=== PATIENT | female | born 1955 | race African-American/Black ===

== ENCOUNTER 2018-02-28 22:08 | Emergency (ER) | payer MEDICARE, OTHER ==
[~2018-02-28] VITALS: Ht 170.2 cm; Wt 117.9 kg
[2018-02-28 22:15] VITALS: BP 188/100
[2018-02-28] MEDS ORDERED: Solu-MEDROL 125mg Inj IVP ONE (22:45)
--- NOTE | 2018-02-28 22:55 | Emergency Room Report ---
History of Present Illness General Chief Complaint: Dyspnea/Respdistress Source: Patient Present Illness HPI 59-year-old female with history of COPD on 2 L nasal cannula 24 hours a day p/w SOB for 1 day. SOB occurs both at rest and on exertion. Denies chest pain. States that she ran out of her albuterol liquid for her nebulizer Pt states that this episode is similar to other episodes of COPD exacerbation. Denies fever, chills. Denies sick contacts or recent travel. Allergies: Coded Allergies: No Known Allergies (Unverified , 02/28/18) Patient History Past Medical History: see triage record Past Surgical History: none Pertinent Family History: none Reviewed Nursing Documentation: PMH: Agreed; PSxH: Agreed Nursing Documentation-PMH Past Medical History: No History, Except For Hx Hypertension: Yes - history of broken collar bone Hx COPD: Yes Review of Systems All Other Systems: negative except mentioned in HPI Physical Exam Vital Signs Date Time Temp Pulse Resp B/P (MAP) Pulse Ox O2 Delivery O2 Flow Rate FiO2 02/28/18 22:09 98.9 116 22 188/100 100 Simple Mask 6.0 99.0 Sp02 EP Interpretation: reviewed, normal General Appearance: alert, GCS 15, non-toxic, mild distress Head: normocephalic, atraumatic Eyes: bilateral eye normal inspection, bilateral eye PERRL, bilateral eye EOMI ENT: normal ENT inspection, normal pharynx, normal voice, moist mucus membranes Neck: normal inspection, full range of motion, supple Respiratory: respiratory distress, speaking full sentences, wheezing, expiration Cardiovascular #1: normal inspection, regular rate, rhythm, no edema, normal capillary refill Cardiovascular #2: 2+ radial (R), 2+ radial (L) Gastrointestinal: normal inspection, non tender, soft, non-distended, no guarding Musculoskeletal: normal inspection, back normal, normal range of motion, non- tender Neurologic: normal inspection, alert, oriented x3, responsive, motor strength/ tone normal, sensory intact, normal gait, speech normal Psychiatric: normal inspection, judgement/insight normal, memory normal Skin: normal inspection, normal color, no rash, warm/dry, well hydrated, normal turgor Medical Decision Making Diagnostic Impression: Primary Impression: COPD exacerbation Additional Impression: Respiratory distress ER Course 63-year-old female with pmhx of COPD p/w SOB for 1 day. DDX: COPD exacerbation, ACS, pneumonia Plan: IV access, cardiac rn, O2 nasal cannula, EKG, CXR obtain basic labs, troponin, Duonebs, steroids, consider mag, Will consider BIPAP for persistent or worsening respiratory status ER Course: Patient's respiratory status has been closely monitored in the ED. Patient has been treated with combivent x 3, steroids, antibiotics. IV mag sulfate CXR reveals congestion vs. infiltrate, given abx Disposition: Patient will be admitted to telemetry D/W hospitalist. Please note that this Emergency Department Report was dictated using [employer] engineer technology software, occasionally this can lead to erroneous entry secondary to interpretation by the dictation equipment. EKG Diagnostic Results EP Interpretation: Yes Rate: Tachycardic Rhythm: NSR ST Segments: Q waves inf leads, PVCs ASA given to patient: No Rhythm Strip EP Interpretation: Yes Rate: 110 Rhythm: NSR, no PVCs, no ectopy Chest X-ray CXR: Ordered: Yes 1 view Indication: SOB EP interpretation: Yes Interpretation: cardiomegaly with some cogestion Impression: cardiomegaly with some cogestion Electronically signed by Avila Greer MD Laboratory Tests Test 02/28/18 23:03 White Blood Count 15.5 K/UL (4.8-10.8) H Red Blood Count 4.34 M/UL (4.20-5.40) Hemoglobin 12.6 G/DL (12.0-16.0) Hematocrit 39.9 % (37.0-47.0) Mean Corpuscular Volume 92 FL (80-99) Mean Corpuscular Hemoglobin 29.0 PG (27.0-31.0) Mean Corpuscular Hemoglobin Concent 31.6 G/DL (32.0-36.0) L Red Cell Distribution Width 13.6 % (11.6-14.8) Platelet Count 252 K/UL (150-450) Mean Platelet Volume 7.6 FL (6.5-10.1) Neutrophils (%) (Auto) 82.6 % (45.0-75.0) H Lymphocytes (%) (Auto) 11.0 % (20.0-45.0) L Monocytes (%) (Auto) 4.9 % (1.0-10.0) Eosinophils (%) (Auto) 1.1 % (0.0-3.0) Basophils (%) (Auto) 0.4 % (0.0-2.0) Urine Color Pale yellow Urine Appearance Clear Urine pH 5 (4.5-8.0) Urine Specific [place] 1.025 (1.005-1.035) Urine Protein 3+ (NEGATIVE) H Urine Glucose (UA) Negative (NEGATIVE) Urine Ketones Negative (NEGATIVE) Urine Occult Blood 1+ (NEGATIVE) H Urine Nitrite Negative (NEGATIVE) Urine Bilirubin Negative (NEGATIVE) Urine Urobilinogen Normal MG/DL (0.0-1.0) Urine Leukocyte Esterase Negative (NEGATIVE) Urine RBC 0-2 /HPF (0 - 2) Urine WBC 0-2 /HPF (0 - 2) Urine Squamous Epithelial Cells Moderate /LPF (NONE/OCC) H Urine Bacteria Few /HPF (NONE) Sodium Level 141 MMOL/L (136-145) Potassium Level 3.7 MMOL/L (3.5-5.1) Chloride Level 104 MMOL/L (98-107) Carbon Dioxide Level 32 MMOL/L (21-32) Anion Gap 5 mmol/L (5-15) Blood Urea Nitrogen 21 mg/dL (7-18) H Creatinine 1.1 MG/DL (0.55-1.30) Estimate Glomerular Filtration Rate 49.9 mL/min (>60) Glucose Level 196 MG/DL (74-106) H Calcium Level 8.8 MG/DL (8.5-10.1) Total Bilirubin 0.2 MG/DL (0.2-1.0) Aspartate Amino Transferase (AST) 14 U/L (15-37) L Alanine Aminotransferase (ALT) 22 U/L (12-78) Alkaline Phosphatase 110 U/L (46-116) Troponin I 0.000 ng/mL (0.000-0.056) Pro-B-Type Natriuretic Peptide 164 pg/mL (0-125) H Total Protein 8.4 G/DL (6.4-8.2) H Albumin 3.3 G/DL (3.4-5.0) L Globulin 5.1 g/dL Albumin/Globulin Ratio 0.6 (1.0-2.7) L Last Vital Signs Date Time Temp Pulse Resp B/P (MAP) Pulse Ox O2 Delivery O2 Flow Rate FiO2 02/28/18 22:15 116 22 Nasal Cannula 2.0 02/28/18 22:15 99.0 188/100 93 99.0 Disposition: ADMITTED INPATIENT Condition: Serious Scripts Azithromycin (ZITHROMAX TRI-JOSTIN) 500 Mg Tablet 500 MG ORAL DAILY, #1 PACK Prov: Avila Greer M.D. 03/01/18 Prednisone* (PREDNISONE*) 20 Mg Tablet 40 MG ORAL DAILY for 10 Days, #5 TAB Prov: Avila Greer M.D. 03/01/18 Albuterol Sulfate* (ALBUTEROL SULFATE HHN*) 2.5 Mg/3 Ml Vial.neb 2.5 MG HHN Q4H PRN for Shortness of Breath, #25 VIAL 3 Refills Prov: Avila Greer M.D. 03/01/18 Avila Greer M.D. Feb 28, 2018 22:55
[2018-02-28 23:11] LABS: APPEARANCE,URINE CLEAR; BILIRUBIN, URINE NEGATIVE (NEGATIVE); COLOR,URINE PALE YELLOW; GLUCOSE, URINE (UA) NEGATIVE (NEGATIVE); KETONES,URINE NEGATIVE (NEGATIVE); LEUKOCYTE ESTERASE ,URINE NEGATIVE (NEGATIVE); NITRITE,URINE NEGATIVE (NEGATIVE); PH,URINE 5 (4.5-8.0); PROTEIN,URINE 3+ (NEGATIVE); UROBILINOGEN,URINE NORMAL MG/DL (0.0-1.0)
[2018-02-28 23:12] LABS: BASOPHILS % (AUTO) 0.4 % (0.0-2.0); EOSINOPHILS % (AUTO) 1.1 % (0.0-3.0); HEMATOCRIT 39.9 % (37.0-47.0); HEMOGLOBIN 12.6 G/DL (12.0-16.0); MEAN CORPUSCULAR VOLUME 92 FL (80-99); MONOCYTES % (AUTO) 4.9 % (1.0-10.0); NEUTROPHILS % (AUTO) 82.6 % (45.0-75.0); PLATELET COUNT 252 K/UL (150-450); RED BLOOD COUNT 4.34 M/UL (4.20-5.40); RED CELL DISTRIBUTION WIDTH 13.6 % (11.6-14.8); WHITE BLOOD COUNT 15.5 K/UL (4.8-10.8)
[2018-02-28] MEDS ORDERED: Azithromycin 500 MG in NS 275 ML IV ONE (23:15)
[2018-02-28 23:21] LABS: ANION GAP 5 mmol/L (5-15); BLOOD UREA NITROGEN 21 mg/dL (7-18); CALCIUM 8.8 MG/DL (8.5-10.1); CARBON DIOXIDE 32 MMOL/L (21-32); CHLORIDE 104 MMOL/L (98-107); CREATININE 1.1 MG/DL (0.55-1.30); POTASSIUM 3.7 MMOL/L (3.5-5.1); SODIUM 141 MMOL/L (136-145)
[2018-02-28] MEDS: Ipratropium 0.02% Inh Soln 2.5ml UD HHN SCH ×3 (23:28→23:58)
[2018-02-28] MEDS: Albuterol ud Inhalation HHN SCH ×3 (23:28→23:58)
[2018-02-28 23:32] LABS: ALANINE AMINOTRANSFERASE 22 U/L (12-78); ALBUMIN 3.3 G/DL (3.4-5.0); ALBUMIN/GLOBULIN RATIO 0.6 (1.0-2.7); ALKALINE PHOSPHATASE 110 U/L (46-116); ASPARTATE AMINO TRANSFERASE 14 U/L (15-37); BILIRUBIN,TOTAL 0.2 MG/DL (0.2-1.0)
[2018-02-28 23:57] VITALS: BP 132/71
[2018-03-01] MEDS ORDERED: Morphine Sulfate 4mg/ml Inj IVP ONE (00:15)
[2018-03-01] MEDS ORDERED: ZITHROMAX TRI-500 MG ORAL (01:04)
[2018-03-01] MEDS ORDERED: PREDNISONE20 MG ORAL (01:04)
[2018-03-01] MEDS ORDERED: ALBUTEROL2.5 MG/3 M HHN (01:04)
[2018-03-01 02:08] VITALS: BP 118/63
[2018-03-01] MEDS ORDERED: cefTRIAXone 1 GM in NS 55 ML IVPB ONE (02:15)
[2018-03-01 04:13] VITALS: BP 141/88
[2018-03-01] MEDS ORDERED: Acetaminophen 500mg (ES) tab ORAL ONE (05:15)
[2018-03-01 05:53] VITALS: BP 141/88
--- NOTE | 2018-03-01 11:31 | Diagnostic Imaging Report ---
Indication: Dyspnea Comparison: None A single view chest radiograph was obtained. Findings: Mild interstitial edema suspected. The heart is enlarged. Aorta is enlarged slightly. Bones are osteopenic. IMPRESSION: Suspect mild interstitial edema
== END 2018-03-01 06:00 | disposition home or self-care (01) ==
LOC: EDBD 22:08 → EMR 22:31
DX: J44.1 Chronic obstructive pulmonary disease with (acute) exacerbation (principal); I10 Essential (primary) hypertension
CPT/HCPCS: 36415; 71045; 80053; 81003; 83880; 84484; 85025; 93005; 94640; 96361; 96374; 96375; 99284; J0456; J0696; J2270; J2930; J7050